=== PATIENT | female | born 1960 | race Caucasian/White ===

== ENCOUNTER 2017-12-24 12:06 | Emergency (ER) | payer OTHER ==
[~2017-12-24] VITALS: Ht 180.3 cm; Wt 81.6 kg
[~2017-12-24 12:06] MED LIST: HYDROCODONE BI473 ML PO; PROCTOSOL-HC2.5% RC
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
[2017-12-24 17:30] VITALS: BP 122/72
[2017-12-24] MEDS ORDERED: HYDROCODON-ACE118 ML PO (18:10)
== END 2017-12-24 18:17 ==
LOC: ERH 12:06
DX: T84.011A Broken internal left hip prosthesis, initial encounter (principal); S16.1XXA Strain of muscle, fascia and tendon at neck level, initial encounter; S20.212A Contusion of left front wall of thorax, initial encounter; S06.9X9A Unspecified intracranial injury with loss of consciousness of unspecified duration, initial encounter; V49.49XA Driver injured in collision with other motor vehicles in traffic accident, initial encounter; Y92.488 Other paved roadways as the place of occurrence of the external cause
CPT/HCPCS: 71100-LT; 73030-LT; 73502-LT